=== PATIENT | male | born 2000 | race Caucasian/White ===

== ENCOUNTER 2018-05-26 20:16 | Emergency (ER) | payer OTHER, SELFPAY ==
[2018-05-26 20:17] VITALS: BP 138/79; PULSE 72; RESP 15; TEMP 37.2; BMI 22.4
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
--- NOTE | 2018-05-26 21:10 | ED.DEP ---
ED Disposition - Plan for ED Patient: Chief Complaint: Other, Pain/Inj Instructions: ED Contusion Chest Wall Referrals: Care Physician,No Primary [Primary Care Provider] -
== END 2018-05-26 22:00 | disposition home or self-care (01) ==
LOC: ED 20:29
PROVIDERS: Emergency Provider Emergency Medicine
DX: S20.212A Contusion of left front wall of thorax, initial encounter (principal); W03.XXXA Other fall on same level due to collision with another person, initial encounter; Y93.9 Activity, unspecified; Y92.9 Unspecified place or not applicable; Y99.9 Unspecified external cause status
CPT/HCPCS: 71101; 99282

== ENCOUNTER → 2020-05-18 09:18 | Outpatient (CLI) | payer BC, SELFPAY | DX: R11.2 Nausea with vomiting, unspecified (principal); R05 Cough | CPT/HCPCS: 87635; G2023; U0003 ==

== ENCOUNTER 2020-08-27 08:26 | Emergency (ER) | payer BC, SELFPAY ==
[2020-08-27 08:27] VITALS: BP 138/93; PULSE 85; RESP 16; TEMP 36.4; O2SAT 99; BMI 27.1
[2020-08-27] MEDS: Ondansetron ODT 4 MG Tablet PO (08:46)
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
[2020-08-27] MEDS: fentaNYL 100 MCG/2 ML Ampul 50 MCG IM (09:05)
[2020-08-27] MEDS: Diphth,Pertuss(Acell),Tet Vac 0.5 ML Vial IM (09:06)
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
[2020-08-27 09:45] VITALS: BP 124/69; PULSE 75; RESP 15; O2SAT 100
== END 2020-08-27 09:46 | disposition home or self-care (01) ==
PROVIDERS: Emergency Provider Emergency Medicine
DX: S80.811A Abrasion, right lower leg, initial encounter (principal); S80.212A Abrasion, left knee, initial encounter; M25.462 Effusion, left knee; Z23 Encounter for immunization; V28.4XXA Motorcycle driver injured in noncollision transport accident in traffic accident, initial encounter; Y93.9 Activity, unspecified; Y92.9 Unspecified place or not applicable; Y99.9 Unspecified external cause status
CPT/HCPCS: 73552; 73590; 90471; 90715; 96372; 99281; 99284